=== PATIENT | male | born 1985 | race American Indian/Alaskan Native ===

== ENCOUNTER 2017-09-11 19:19 | Emergency (ER) | payer SELFPAY ==
[2017-09-11 19:19] VITALS: BMI 22.1
[2017-09-11 19:28] VITALS: BP 128/63; PULSE 94; RESP 16; TEMP 98.2; O2SAT 100
--- NOTE | 2017-09-11 20:21 | ED PDOC ---
HPI: Back Time Seen by Provider: 09/11/17 19:45 Chief Complaint (Nursing): Back Pain Chief Complaint (Provider): Back Pain History Per: Patient History/Exam Limitations: no limitations Onset/Duration Of Symptoms: Days (x 1) Current Symptoms Are (Timing): Still Present Additional Complaint(s): is a 31 year old male who presents to the Emergency Department complaining of back pain since yesterday. Patient states earlier this morning his back felt "tight". Patient states he always had back problems and that the pain feels the same. Admits to taking Motrin and muscle relaxers (prescribed at [facility] x 2 weeks), but makes him drowsy. PMD: No Provider Past Medical History Reviewed: Historical Data, Nursing Documentation, Vital Signs Vital Signs: Last Vital Signs Temp 98.2 F 09/11/17 19:27 Pulse 94 H 09/11/17 19:27 Resp 16 09/11/17 19:27 BP 128/63 09/11/17 19:27 Pulse Ox 100 09/11/17 19:27 - Medical History PMH: Back Problems, Chronic Pain (back) - Surgical History Surgical History: Appendectomy - Family History Family History: States: Unknown Family Hx - Immunization History Hx Tetanus Toxoid Vaccination: No Hx Influenza Vaccination: Yes Hx Pneumococcal Vaccination: No - Home Medications Home Medications: Ambulatory Orders Medication Instructions Recorded Cyclobenzaprine [Cyclobenzaprine 10 mg PO TID PRN #15 tab 08/29/17 HCl] Ibuprofen [Motrin Tab] 400 mg PO TID PRN #30 tab 08/29/17 Famotidine [Pepcid] 20 mg PO BID #20 tab 09/03/17 Lidocaine 5% [Lidoderm] 1 patch TP DAILY #30 patch 09/03/17 Naproxen [Naprosyn] 1 tab PO BID PRN #25 tab 09/03/17 diaZEpam [Valium] 2 mg PO TID #15 tab 09/03/17 oxyCODONE/Acetaminophen [Percocet 1 tab PO QID PRN #14 tab 09/03/17 5/325 mg Tab] Cyclobenzaprine [Cyclobenzaprine 10 mg PO QPM #12 tab 09/11/17 HCl] - Allergies Allergies/Adverse Reactions: Allergies Allergy/AdvReac Type Severity Reaction Status Date / Time shellfish derived AdvReac Verified 09/03/17 11:56 Review of Systems ROS Statement: Except As Marked, All Systems Reviewed And Found Negative Musculoskeletal: Positive for: Back Pain Physical Exam - Reviewed Nursing Documentation Reviewed: Yes Vital Signs Reviewed: Yes - Physical Exam Appears: Positive for: Well, Non-toxic Head Exam: Positive for: ATRAUMATIC, NORMAL INSPECTION, NORMOCEPHALIC Skin: Positive for: Normal Color Eye Exam: Positive for: Normal appearance ENT: Positive for: Normal ENT Inspection Neck: Positive for: Normal Cardiovascular/Chest: Positive for: Regular Rate, Rhythm Respiratory: Positive for: Normal Breath Sounds. Negative for: Respiratory Distress Back: Positive for: Other (Paraspinal Tenderness) Extremity: Negative for: Deformity Neurologic/Psych: Positive for: Alert, Gait - ECG O2 Sat by Pulse Oximetry: 100 (RA) Pulse Ox Interpretation: Normal Medical Decision Making Medical Decision Making: Time: 20:15 Plan: - Motrin Tab 600 mg PO Time: 20:16 Cyclobenzaprine HCL 10 mg PO Upon provider evaluation patient is medically stable, and requires no further treatment in the ED at this time. Patient will be discharged with Rx for Cyclobenzaprine. Counseling was provided and all questions were answered regarding diagnosis and need for follow up with PCP. There is agreement to discharge plan. Return if symptoms persist or worsen. Scribe Attestation: Documented by Tashi Herman, acting as a scribe for Zoë Martins PA-C. Provider Scribe Attestation: All medical record entries made by the Scribe were at my direction and personally dictated by me. I have reviewed the chart and agree that the record accurately reflects my personal performance of the history, physical exam, medical decision making, and the department course for this patient. I have also personally directed, reviewed, and agree with the discharge instructions and disposition. Disposition - Clinical Impression Clinical Impression: Back pain - Patient ED Disposition Is Patient to be Admitted: No - Disposition Disposition: Routine/Home Disposition Time: 20:16 Condition: STABLE Prescriptions: Cyclobenzaprine [Cyclobenzaprine HCl] 10 mg PO QPM #12 tab Instructions: Chronic Back Pain (ED) Forms: [facility] (Italian), [facility] ED School/Work Excuse
== END 2017-09-11 21:16 | disposition home or self-care (01) ==
LOC: H.ER 19:19
DX: G89.29 Other chronic pain (principal)